=== PATIENT | male | born 1950 | race Caucasian/White ===

== ENCOUNTER → 2016-06-23 | Outpatient (CLI) | payer MEDICARE ==
[2016-04-14 21:15] VITALS: BP 156/66
[2016-06-23 10:08] LABS: CALCIUM 9.5 mg/dL (8.5-10.1); CREATININE 1.8 mg/dL (0.7-1.3); POTASSIUM 4.9 mmol/L (3.5-5.1)
[2016-06-23 10:10] LABS: GFR 37.7
== END | disposition home or self-care (01) ==
LOC: LAB 09:32
PROVIDERS: ATTEND Internal Medicine Nephrology
DX: E87.5 Hyperkalemia (principal)
CPT/HCPCS: 36415; 80048

== ENCOUNTER → 2016-07-30 | Outpatient (CLI) | payer MEDICARE ==
[2016-04-14 21:15] VITALS: BP 156/66
== END | disposition home or self-care (01) ==
LOC: LAB 11:27
PROVIDERS: ATTEND Internal Medicine Nephrology
DX: I12.9 Hypertensive chronic kidney disease with stage 1 through stage 4 chronic kidney disease, or unspecified chronic kidney disease (principal); N18.3 Chronic kidney disease, stage 3 (moderate); E87.5 Hyperkalemia; Z90.5 Acquired absence of kidney
CPT/HCPCS: 36415; 84132

== ENCOUNTER 2016-08-28 23:09 | Emergency (ER) | payer MEDICARE ==
[~2016-08-28] VITALS: Ht 165.1 cm; Wt 66.0 kg
--- NOTE | 2016-08-28 23:38 | PHYS DOC ---
Past History Past Medical History: Hypertension Past Surgical History: No Surgical History Alcohol Use: None Drug Use: None Adult General Chief Complaint Chief Complaint: LOWER EXT PAIN HPI HPI Patient is a 66 year old male who presents with complaint of bilateral lower extremity cramping. Patient was brought to the emergency department by EMS. 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 Patient states he started getting cramping of both of his legs this evening that became very severe. Patient was started on IV fluids by EMS prior to arrival. Patient states that he is still having cramping in his lower legs but states that it has improved since initiation of fluids. Patient denies any associated nausea, vomiting, chest pain, shortness of breath, or abdominal pain. Patient has had no fever or recent illness. 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 Patient currently has one kidney. Review of Systems Review of Systems Constitutional: Fatigue, denies fever or chills [] Eyes: Denies change in visual acuity, redness, or eye pain [] HENT: Denies nasal congestion or sore throat [] Respiratory: Denies cough or shortness of breath [] Cardiovascular: Denies chest pain or edema [] GI: Denies abdominal pain, nausea, vomiting, bloody stools or diarrhea [] : Denies dysuria or hematuria [] Musculoskeletal: Muscle cramps, denies back pain or joint pain [] Integument: Denies rash or skin lesions [] Neurologic: Denies headache, focal weakness or sensory changes [] Current Medications Current Medications Current Medications Medications (Trade) Dose Ordered Sig/[facility] Start Time Stop Time Status Last Admin Dose Admin Diazepam (Valium) 2 mg 1X ONCE 08/28/16 23:30 08/28/16 23:31 UNV Sodium Chloride 1,000 ml @ 1,000 mls/hr Q1H 08/28/16 23:27 08/29/16 00:26 UNV Allergies Allergies Allergies Coded Allergies Type Severity Reaction Last Updated Verified No Known Drug Allergies 04/14/16 No Physical Exam Physical Exam Constitutional: Alert, afebrile, appears in mild discomfort. [] HENT: Normocephalic, atraumatic, bilateral external ears normal, oropharynx moist, no oral exudates, nose normal. [] Eyes: PERRLA, EOMI, conjunctiva normal, no discharge. [] Neck: Normal range of motion, no tenderness, supple, no stridor. [] Cardiovascular:Heart rate regular rhythm, no murmur [] Lungs & Thorax: Bilateral breath sounds clear to auscultation [] Abdomen: Bowel sounds normal, soft, no tenderness, no masses, no pulsatile masses. [] Skin: Warm, dry, no erythema, no rash. [] Back: No tenderness, no CVA tenderness. [] Extremities: Mild bilateral calf tenderness to palpation with mild tetany, no cyanosis, ROM intact, no edema. [] Neurologic: Alert and oriented X 3, normal motor function, normal sensory function, no focal deficits noted. [] Current Patient Data Lab Results Laboratory Tests Test 08/28/16 23:55 White Blood Count 8.6 x10^3/uL Red Blood Count 4.21 x10^6/uL Hemoglobin 12.3 g/dL Hematocrit 36.4 % Mean Corpuscular Volume 87 fL Mean Corpuscular Hemoglobin 29 pg Mean Corpuscular Hemoglobin Concent 34 g/dL Red Cell Distribution Width 13.8 % Platelet Count 234 x10^3/uL Neutrophils (%) (Auto) 73 % Lymphocytes (%) (Auto) 17 % Monocytes (%) (Auto) 9 % Eosinophils (%) (Auto) 1 % Basophils (%) (Auto) 1 % Neutrophils # (Auto) 6.3 x10^3uL Lymphocytes # (Auto) 1.4 x10^3/uL Monocytes # (Auto) 0.7 x10^3/uL Eosinophils # (Auto) 0.1 x10^3/uL Basophils # (Auto) 0.1 x10^3/uL Sodium Level 138 mmol/L Potassium Level 4.4 mmol/L Chloride Level 105 mmol/L Carbon Dioxide Level 24 mmol/L Anion Gap 9 Blood Urea Nitrogen 38 mg/dL Creatinine 2.3 mg/dL Estimated GFR (Cockcroft-Gault) 28.4 BUN/Creatinine Ratio 17 Glucose Level 103 mg/dL Calcium Level 9.2 mg/dL Magnesium Level 2.2 mg/dL Total Bilirubin 0.2 mg/dL Aspartate Amino Transf (AST/SGOT) 21 U/L Alanine Aminotransferase (ALT/SGPT) 33 U/L Alkaline Phosphatase 92 U/L Creatine Kinase 175 U/L Total Protein 6.9 g/dL Albumin 3.6 g/dL Albumin/Globulin Ratio 1.1 Lipase 165 U/L Current Medications Medications (Trade) Dose Ordered Sig/Valente Route PRN Reason Start Time Stop Time Status Last Admin Dose Admin Sodium Chloride 1,000 ml @ 1,000 mls/hr Q1H IV 08/28/16 23:45 08/29/16 00:44 DC 08/29/16 00:02 Diazepam (Valium) 2 mg 1X ONCE IV 08/28/16 23:45 08/28/16 23:46 DC 08/29/16 00:02 EKG EKG Not performed [] Radiology/Procedures Radiology/Procedures Not performed [] Course & Med Decision Making Course & Med Decision Making Pertinent Labs and Imaging studies reviewed. (See chart for details) Patient received 500 mL of IV fluids by EMS prior to arrival. Patient was given an additional 1 L of IV fluids in the emergency department. Patient was found have mildly elevated creatinine and BUN the patient's CK levels appear to be normal at this time. The patient's symptoms appear to be due to heat exposure with resultant mild renal insufficiency. Patient states that he feels better at this time. Advised the patient to continue on oral hydration and rest with avoidance of any heat exposure or significant exertion. Advised patient follow- up with his primary doctor in 3 days for repeat blood testing to ensure improvement and BUN and creatinine. Advised return emergency department for any worsening symptoms. Patient voiced understanding and in agreement with treatment plan. Dragon Disclaimer Dragon Disclaimer This chart was dictated in whole or in part using Voice Recognition software in a busy, high-work load, and often noisy Emergency Department environment. It may contain unintended and wholly unrecognized errors or omissions. Departure Departure: Impression: Primary Impression: Dehydration Additional Impression: Heat cramps Disposition: HOME, SELF-CARE Condition: IMPROVED Referrals: ELIS VIZCAINO DO (PCP) Patient Instructions: Dehydration, Adult, Muscle Cramps Additional Instructions: Follow-up in 3 days with your primary doctor. You will need to have a basic metabolic panel blood test done by your primary doctor to recheck your BUN and creatinine as it was found to be elevated at today's visit. You're creatinine level was 2.3 today. This is believed to be due to dehydration and is expected to improve with hydration. Avoid any exertion or outside activity until your symptoms have completely resolved. Return to the emergency department for any worsening symptoms. Problem Qualifiers Additional Impression: Heat cramps Encounter type: initial encounter Qualified Codes: T67.2XXA - Heat cramp, initial encounter MAIN JULIO MD Aug 28, 2016 23:38
[2016-08-28] MEDS ORDERED: IV NORMAL SALINE 1,000ML 1,000 ML IV SCH (23:45)
[2016-08-29 00:22] LABS: BASO # 0.1 x10^3/uL (0.0-0.2); BASO % 1 % (0-3); EOS # 0.1 x10^3/uL (0.0-0.7); EOS % 1 % (0-3); HEMATOCRIT 36.4 % (39.0-53.0); HEMOGLOBIN 12.3 g/dL (13.0-17.5); LYMPH # 1.4 x10^3/uL (1.0-4.8); LYMPH % 17 % (24-48); MEAN CORPUSCULAR HEMOGLOBIN 29 pg (25-35); MEAN CORPUSCULAR HGB CONC 34 g/dL (31-37); MEAN CORPUSCULAR VOLUME 87 fL (79-100); MONO # 0.7 x10^3/uL (0.0-1.1); MONO % 9 % (0-9); NEUT # 6.3 x10^3uL (1.8-7.7); NEUT % 73 % (31-73); PLATELET COUNT 234 x10^3/uL (140-400); RED BLOOD COUNT 4.21 x10^6/uL (4.30-5.70); RED CELL DISTRIBUTION WIDTH 13.8 % (11.5-14.5); WHITE BLOOD COUNT 8.6 x10^3/uL (4.0-11.0)
[2016-08-29 00:31] LABS: ALBUMIN 3.6 g/dL (3.4-5.0); ALBUMIN/GLOBULIN RATIO 1.1 (1.0-1.7); CALCIUM 9.2 mg/dL (8.5-10.1); CREATININE 2.3 mg/dL (0.7-1.3); GFR 28.4; MAGNESIUM 2.2 mg/dL (1.8-2.4); POTASSIUM 4.4 mmol/L (3.5-5.1); TOTAL BILIRUBIN 0.2 mg/dL (0.2-1.0); TOTAL PROTEIN 6.9 g/dL (6.4-8.2)
[2016-08-29 01:21] LABS: BILIRUBIN,URINE NEG (NEG); CLARITY,URINE CLEAR; COLOR,URINE YELLOW; GLUCOSE,URINE NEG (NEG); NITRITE,URINE NEG (NEG); UROBILINOGEN,URINE 0.2 mg/dL (0.2 mg/dL)
[2016-08-29 01:22] LABS: BACTERIA,URINE FEW /HPF (0-FEW); HYALINE CASTS, URINE OCC /HPF; RBC,URINE 0 /HPF (0-2); SPERM,URINE PRESENT /HPF; SQUAMOUS EPITHELIAL CELL,UR FEW /LPF; WBC,URINE 0 /HPF (0-4)
[2016-08-29 01:30] VITALS: BP 139/90
== END 2016-08-29 01:36 | disposition home or self-care (01) ==
LOC: ER 23:09
DX: E86.0 Dehydration (principal); T67.2XXA Heat cramp, initial encounter; I10 Essential (primary) hypertension; X58.XXXA Exposure to other specified factors, initial encounter; Y93.89 Activity, other specified; Y99.8 Other external cause status; Y92.214 College as the place of occurrence of the external cause
CPT/HCPCS: 36415; 80053; 81001; 82550; 83690; 83735; 85027; 96361; 96374; 99284-25; J7030

== ENCOUNTER → 2016-09-09 | Outpatient (CLI) | payer MEDICARE ==
[2016-08-29 01:30] VITALS: BP 139/90
[2016-09-09 16:26] LABS: ALBUMIN 3.7 g/dL (3.4-5.0); CALCIUM 8.8 mg/dL (8.5-10.1); CREATININE 1.7 mg/dL (0.7-1.3); GFR 40.3; MAGNESIUM 2.2 mg/dL (1.8-2.4); PHOSPHORUS 3.7 mg/dL (2.6-4.7)
[2016-09-10 04:08] LABS: CREAT RD UR 94.7 mg/dL (Not Estab.); MICRO CREAT RATIO <12.7 mg/g creat (0.0-30.0); MICROALB RD UR <12.0 ug/mL (Not Estab.); TOTAL PROTEIN CREATININE RATIO 86 mg/g creat (0-200); UR PROTEIN RD 8.1 mg/dL (Not Estab.)
[2016-09-12 09:08] LABS: CALCIUM PTH 9.2 mg/dL (8.6-10.2); CREATININE PTH 1.59 mg/dL (0.76-1.27)
[2016-09-12 11:09] LABS: PTH INTACT 39 pg/mL (15-65)
== END | disposition home or self-care (01) ==
LOC: LAB 14:55
PROVIDERS: ATTEND Internal Medicine Nephrology
DX: I12.9 Hypertensive chronic kidney disease with stage 1 through stage 4 chronic kidney disease, or unspecified chronic kidney disease (principal); N18.3 Chronic kidney disease, stage 3 (moderate); E87.5 Hyperkalemia; Z90.5 Acquired absence of kidney
CPT/HCPCS: 36415; 80069; 82043; 82570; 83735; 83970; 84156; 85014; 85018

== ENCOUNTER → 2016-10-06 | Outpatient (CLI) | payer MEDICARE | END | disposition home or self-care (01) | LOC: LAB 14:39 | PROVIDERS: ATTEND Internal Medicine Nephrology | DX: E87.5 Hyperkalemia (principal) | CPT/HCPCS: 36415; 84132 ==

== ENCOUNTER → 2016-11-23 | Outpatient (CLI) | payer MEDICARE ==
[2016-11-23 09:08] LABS: HEMATOCRIT 37.6 % (39.0-53.0)
[2016-11-23 09:15] LABS: ALBUMIN 3.5 g/dL (3.4-5.0); CALCIUM 8.7 mg/dL (8.5-10.1); CREATININE 1.7 mg/dL (0.7-1.3); GFR 40.3; PHOSPHORUS 3.4 mg/dL (2.6-4.7); POTASSIUM 4.4 mmol/L (3.5-5.1)
[2016-11-23 23:09] LABS: MICRO CREAT RATIO <8.7 mg/g creat (0.0-30.0); MICROALB RD UR <12.0 ug/mL (Not Estab.); PROTEIN RANDOM URINE 7.8 mg/dL (Not Estab.)
[2016-11-24 00:07] LABS: PTH INTACT 29 pg/mL (15-65)
== END | disposition home or self-care (01) ==
LOC: LAB 08:17
PROVIDERS: ATTEND Internal Medicine Nephrology
DX: I12.9 Hypertensive chronic kidney disease with stage 1 through stage 4 chronic kidney disease, or unspecified chronic kidney disease (principal); N18.3 Chronic kidney disease, stage 3 (moderate); E87.5 Hyperkalemia; Z90.5 Acquired absence of kidney
CPT/HCPCS: 36415; 80069; 82043; 82570; 83735; 83970; 84156; 85014; 85018

== ENCOUNTER 2017-03-12 19:17 | Emergency (ER) | payer MEDICARE ==
[~2017-03-12] VITALS: Ht 170.2 cm; Wt 61.7 kg
[2017-03-12] MEDS ORDERED: IV NORMAL SALINE 1,000ML 1,000 ML IV ONE (19:30)
--- NOTE | 2017-03-12 19:34 | PHYS DOC ---
Past History Past Medical History: Hypertension, Other Past Surgical History: Other Alcohol Use: None Drug Use: None Adult General Chief Complaint Chief Complaint: ABDOMINAL PAIN HPI HPI Patient is a 66 year old M who presents with right groin pain off and on for the past week. Patient states his truck has been broken down in today's a first aid they were able to get up and running therefore came to the emergency room for further evaluation. Currently in emergency room patient has no pain as is in no acute distress. Patient states he does not know what brings on or relieves the pain and numbness right growing. Patient denies any dysuria. Patient denies any cost patient or diarrhea. 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 Patient denies any fevers. Patient denies any nausea/vomiting. Patient has no other complaints. Review of Systems Review of Systems GEN: Denies fevers, chills, sweats HEENT: Denies blurred vision, sore throat CV: Denies chest pain RESP: Denies shortness of air, cough GI: Denies n/v/d NEURO: Denies confusion, dizziness MSK: Denies weakness, joint pain/swelling All other systems were reviewed and found to be within normal limits, except as documented in this note. Allergies Allergies Allergies Coded Allergies Type Severity Reaction Last Updated Verified No Known Drug Allergies 04/14/16 No Physical Exam Physical Exam GEN.: No apparent distress. Alert and oriented. HEENT: Head is normocephalic, atraumatic NECK: Supple. LUNGS: CTAB. HEART: RRR, S1, S2 present. Peripheral pulses intact ABDOMEN: Soft, nontender. Positive bowel sounds. : Circumcised, no tenderness palpation and no masses felt in the right or left testicle, normal lie for both testicles no groin masses felt EXTREMITIES: Without any cyanosis. NEUROLOGIC: Normal speech, normal tone PSYCHIATRIC: Normal affect, normal mood. SKIN: No ulcerations Current Patient Data Vital Signs Vital Signs Date Time Temp Pulse Resp B/P (MAP) Pulse Ox O2 Delivery O2 Flow Rate FiO2 03/12/17 19:25 97.6 66 18 98 Room Air EKG EKG [] Radiology/Procedures Radiology/Procedures CT scan abdomen and pelvis without contrast IMPRESSION: 1. Bilateral inguinal hernias as described above. 2. The appendix is negative. 3. Sigmoid colon diverticulosis. 4. Bladder diverticuli.[] Course & Med Decision Making Course & Med Decision Making Pertinent Labs and Imaging studies reviewed. (See chart for details) ED course: Patient was seen and examined emergency room abdominal lab work was ordered along with a CT scan abdomen pelvis with contrast Updated patient on lab results and specific the elevated creatinine 1.[address] findings of bilateral inguinal hernias. On reexamination patient has no signs of incarceration or strangulation of the hernias and since the patient is asymptomatic at this time he is stable for discharge and recommended follow-up with his PCP to be referred on to a general surgeon. MDM: After reviewing the chart, CC/HPI/PMH, physical exam, [lab results], [ radiological results], I do not believe the patient has intra-abdominal emergency warranting further workup and/or admission at this time. Patient was made aware of the abnormal lab work and the abnormal findings on CT scan. On reexamination patient is asymptomatic and wanted to go home. I believe patient stable for discharge. Recommended short-term follow-up as PCP. Additional verbal discharge instructions were provided to the patient and that if symptoms get worse or any new symptoms arise that are worrisome to the patient he is to return to the emergency room immediately [] Dragon Disclaimer Dragon Disclaimer This electronic medical record was generated, in whole or in part, using a voice recognition dictation system. Departure Departure: Impression: Primary Impression: Right groin pain Additional Impressions: Inguinal hernia bilateral, non-recurrent Renal insufficiency Disposition: HOME, SELF-CARE Condition: IMPROVED Referrals: ELIS VZICAINO DO (PCP) Patient Instructions: Abdominal Pain (Nonspecific), Chronic Renal Insufficiency , Inguinal Hernia, Adult Additional Instructions: Please follow-up with your family physician in the next one to 2 days for further evaluation and management and recheck of your creatinine and for further treatment of your inguinal hernia Problem Qualifiers RAMONA LICEA DO Mar 12, 2017 19:34
[2017-03-12 19:52] LABS: BASO # 0.1 x10^3/uL (0.0-0.2); BASO % 1 % (0-3); EOS # 0.2 x10^3/uL (0.0-0.7); EOS % 3 % (0-3); HEMOGLOBIN 13.5 g/dL (13.0-17.5); LYMPH % 37 % (24-48); MEAN CORPUSCULAR HEMOGLOBIN 30 pg (25-35); MEAN CORPUSCULAR HGB CONC 35 g/dL (31-37); MEAN CORPUSCULAR VOLUME 87 fL (79-100); MONO # 0.5 x10^3/uL (0.0-1.1); MONO % 9 % (0-9); NEUT # 2.7 x10^3uL (1.8-7.7); NEUT % 50 % (31-73); PLATELET COUNT 232 x10^3/uL (140-400); RED BLOOD COUNT 4.47 x10^6/uL (4.30-5.70); RED CELL DISTRIBUTION WIDTH 12.8 % (11.5-14.5); WHITE BLOOD COUNT 5.4 x10^3/uL (4.0-11.0)
[2017-03-12 20:05] LABS: ALBUMIN 3.6 g/dL (3.4-5.0); ALBUMIN/GLOBULIN RATIO 1.1 (1.0-1.7); CALCIUM 9.3 mg/dL (8.5-10.1); CREATININE 1.8 mg/dL (0.7-1.3); GFR 37.7; POTASSIUM 3.7 mmol/L (3.5-5.1); TOTAL BILIRUBIN 0.2 mg/dL (0.2-1.0)
[2017-03-12 20:48] VITALS: BP 165/92
--- NOTE | 2017-03-12 21:18 | RAD ---
CT abdomen and pelvis without contrast TECHNIQUE: Helical CT imaging of the abdomen and pelvis was acquired without contrast. COMPARISON: CT abdomen and pelvis April 14, 2016. HISTORY: Right lower quadrant abdominal pain. History of left nephrectomy for neoplasm. Abdomen findings: Left nephrectomy. Left adrenal absent or atrophic. Right kidney, right adrenal, pancreas, spleen, liver and gallbladder are unremarkable. Extensive sigmoid colon diverticulosis without inflammatory change evident. The appendix is negative. No bowel obstruction. Aortoiliac artery calcified plaque and mild tortuosity. No abdominal fluid. Lower lumbar spine disc disease. Pelvis findings: 2 cm hypodensity diverticulum of the right posterolateral bladder wall and a smaller 1 cm left Hutch diverticulum. There is a shallow 2 cm left inguinal hernia containing a segment of small bowel without obstruction or inflammation. There is a slightly larger 4 cm right inguinal fatty hernia. Prostate, rectum and bones are unremarkable. No pelvic fluid. IMPRESSION: 1. Bilateral inguinal hernias as described above. 2. The appendix is negative. 3. Sigmoid colon diverticulosis. 4. Bladder diverticuli. Exposure: One or more of the following individualized dose reduction techniques were utilized for this examination: 1. Automated exposure control 2. Adjustment of the mA and/or kV according to patient size 3. Use of iterative reconstruction technique Electronically signed by: Moises Valles MD (03/12/2017 9:15 PM) [facility]
[2017-03-12 21:31] LABS: BACTERIA,URINE 0 /HPF (0-FEW); BILIRUBIN,URINE NEG (NEG); CLARITY,URINE CLEAR; COLOR,URINE STRAW; GLUCOSE,URINE NEG (NEG); NITRITE,URINE NEG (NEG); RBC,URINE 0 /HPF (0-2); SQUAMOUS EPITHELIAL CELL,UR OCC /LPF; UROBILINOGEN,URINE 0.2 mg/dL (0.2 mg/dL); WBC,URINE OCC /HPF (0-4)
== END 2017-03-12 22:07 | disposition home or self-care (01) ==
LOC: ER 19:17
DX: K40.20 Bilateral inguinal hernia, without obstruction or gangrene, not specified as recurrent (principal); N28.9 Disorder of kidney and ureter, unspecified; I10 Essential (primary) hypertension
CPT/HCPCS: 36415; 74176; 80053; 81001; 83690; 85025; 96360; 99285-25; J7030

== ENCOUNTER → 2017-03-26 | Outpatient (CLI) | payer MEDICARE ==
[2017-03-12 20:48] VITALS: BP 165/92
[2017-03-26 14:37] LABS: CREATININE 1.6 mg/dL (0.7-1.3); GFR 43.2; POTASSIUM 4.1 mmol/L (3.5-5.1)
== END | disposition home or self-care (01) ==
LOC: LAB 13:50
PROVIDERS: ATTEND Surgery
DX: Z01.812 Encounter for preprocedural laboratory examination (principal)
CPT/HCPCS: 36415; 80048; 83880

== ENCOUNTER 2017-12-28 17:55 | Emergency (ER) | payer MEDICARE ==
[~2017-12-28] VITALS: Ht 165.1 cm; Wt 65.8 kg
--- NOTE | 2017-12-28 20:13 | PHYS DOC ---
Past History Past Medical History: Hypertension Past Surgical History: Other Smoking: Non-smoker Alcohol Use: None Drug Use: None Adult General Chief Complaint Chief Complaint: FOREIGNBODY EAR HPI HPI Patient is a previously healthy 67-year-old male presenting to the ED due to cotton in the ear. Patient reports that he was cleaning his ear with a Q-tip but the cotton got left behind in his right ear. Patient denies any pain or discomfort in the right ear. States that he is missing a part of his tympanic membrane in the right ear and that he cannot hear out of that ear. Patient states that he is comfortable and not in any distress. Review of Systems Review of Systems Constitutional: Denies fever or chills [] Eyes: Denies change in visual acuity, redness, or eye pain [] HENT: Denies nasal congestion or sore throat [] Respiratory: Denies cough or shortness of breath [] Cardiovascular: Denies chest pain GI: Denies abdominal pain, nausea, vomiting, bloody stools or diarrhea [] : Denies dysuria or hematuria [] Musculoskeletal: Denies back pain or joint pain [] Integument: Denies rash or skin lesions [] Neurologic: Denies headache, focal weakness or sensory changes [] Complete systems were reviewed and found to be within normal limits, except as documented in this note. Allergies Allergies Allergies Coded Allergies Type Severity Reaction Last Updated Verified No Known Drug Allergies 04/14/16 No Physical Exam Physical Exam Constitutional: Well developed, well nourished, no acute distress, non-toxic appearance. [] HENT: Normocephalic, atraumatic, abnormal right tympanic membrane- partial tear which appears chronic, no cotton or other foreign body visible in the right ear. Eyes: Conjunctiva normal, no discharge. [] Neck: Normal range of motion, supple Skin: Warm, dry, no erythema, no rash. [] Extremities: No tenderness, ROM intact Neurologic: Alert and oriented X 3, normal motor function, normal sensory function, no focal deficits noted. [] Psychologic: Affect normal, judgement normal, mood normal. [] Current Patient Data Vital Signs Vital Signs Date Time Temp Pulse Resp B/P (MAP) Pulse Ox O2 Delivery O2 Flow Rate FiO2 12/28/17 19:02 98.2 61 20 99 Room Air EKG EKG [] Radiology/Procedures Radiology/Procedures [] Course & Med Decision Making Course & Med Decision Making 67-year-old male presenting to the ED due to concern for retained cotton foreign body in right ear. Patient did not endorse any discomfort or pain in the right ear. The cotton was unable to be visualized using the otoscope. The patient was reminded to not place any more foreign bodies into his right ear due to his abnormal tympanic membrane and concern for further injury. Patient stable for discharge with outpatient follow-up with PCP/ENT. Discussed findings and plan with patient, who acknowledges understanding and agreement. Dragon Disclaimer Dragon Disclaimer This electronic medical record was generated, in whole or in part, using a voice recognition dictation system. Departure Departure: Impression: Primary Impression: Feared condition not demonstrated Additional Impression: Abnormal tympanic membrane Disposition: 01 HOME, SELF-CARE Condition: STABLE Referrals: ELIS VIZCAINO DO (PCP) Patient Instructions: Ear Foreign Body, [id number] Additional Instructions: Foreign body not demonstrated on today's examination. Please refrain from placing items including Qtips into ears. Problem Qualifiers Additional Impression: Abnormal tympanic membrane Laterality: right Qualified Codes: H73.91 - Unspecified disorder of tympanic membrane, right ear RJ PEREZ DO Dec 28, 2017 20:13
[2017-12-28 20:15] VITALS: BP 146/78
== END 2017-12-28 20:18 | disposition home or self-care (01) ==
LOC: ER 17:58
DX: Z71.1 Person with feared health complaint in whom no diagnosis is made (principal); H73.891 Other specified disorders of tympanic membrane, right ear; I10 Essential (primary) hypertension
CPT/HCPCS: 99281

== ENCOUNTER → 2018-11-08 | Outpatient (CLI) | payer OTHER ==
[2018-11-08 10:32] LABS: HEMATOCRIT 40.8 % (39.0-53.0); HEMOGLOBIN 13.7 g/dL (13.0-17.5)
[2018-11-08 10:39] LABS: ALBUMIN 3.7 g/dL (3.4-5.0); CREATININE 1.6 mg/dL (0.7-1.3); GFR 42.9; MAGNESIUM 2.1 mg/dL (1.8-2.4); PHOSPHORUS 3.5 mg/dL (2.6-4.7); POTASSIUM 4.7 mmol/L (3.5-5.1)
[2018-11-08 14:11] LABS: CREATININE,RANDOM URINE 119.2 mg/dL (Not Establ.)
[2018-11-08 22:10] LABS: MICRO CREAT RATIO <2.7 mg/g creat (0.0-30.0); MICROALB RD UR <3.0 ug/mL (Not Estab.)
[2018-11-09 01:08] LABS: CALCIUM PTH 9.3 mg/dL (8.6-10.2); CREATININE PTH 1.44 mg/dL (0.76-1.27); PTH INTACT 35 pg/mL (15-65)
== END | disposition home or self-care (01) ==
LOC: MERGE 09:43 → LAB 09:43
PROVIDERS: ATTEND Nurse Practitioner Adult Health
DX: I12.9 Hypertensive chronic kidney disease with stage 1 through stage 4 chronic kidney disease, or unspecified chronic kidney disease (principal); N18.3 Chronic kidney disease, stage 3 (moderate); Z90.5 Acquired absence of kidney; Z68.24 Body mass index [BMI] 24.0-24.9, adult
CPT/HCPCS: 36415; 80069; 82043; 82570; 83735; 83970; 84156; 85014; 85018

== ENCOUNTER 2019-04-13 04:26 | Emergency (ER) | payer MEDICARE, OTHER ==
[~2019-04-13] VITALS: Ht 165.1 cm; Wt 66.0 kg
[2019-04-13] MEDS ORDERED: IV NORMAL SALINE 1,000ML 1,000 ML IV SCH (05:00)
[2019-04-13 05:04] LABS: BASO % 1 % (0-3); EOS % 1 % (0-3); HEMATOCRIT 38.4 % (39.0-53.0); HEMOGLOBIN 12.8 g/dL (13.0-17.5); LYMPH # 1.2 x10^3/uL (1.0-4.8); LYMPH % 24 % (24-48); MEAN CORPUSCULAR HEMOGLOBIN 30 pg (25-35); MEAN CORPUSCULAR HGB CONC 33 g/dL (31-37); MEAN CORPUSCULAR VOLUME 89 fL (79-100); MONO # 0.6 x10^3/uL (0.0-1.1); MONO % 13 % (0-9); NEUT # 3.1 x10^3uL (1.8-7.7); NEUT % 62 % (31-73); PLATELET COUNT 177 x10^3/uL (140-400); RED BLOOD COUNT 4.33 x10^6/uL (4.30-5.70); RED CELL DISTRIBUTION WIDTH 13.3 % (11.5-14.5); WHITE BLOOD COUNT 5.1 x10^3/uL (4.0-11.0)
[2019-04-13 05:10] LABS: CALCIUM 8.1 mg/dL (8.5-10.1); CREATININE 1.8 mg/dL (0.7-1.3); GFR 37.5; POTASSIUM 3.9 mmol/L (3.5-5.1)
[2019-04-13 05:16] LABS: ALBUMIN 3.3 g/dL (3.4-5.0); TOTAL BILIRUBIN 0.3 mg/dL (0.2-1.0); TOTAL PROTEIN 6.6 g/dL (6.4-8.2)
--- NOTE | 2019-04-13 05:30 | PHYS DOC ---
Past History Past Medical History: DVT, Hypertension Past Surgical History: Other Additional Past Surgical Histo: TUMOR REMOVAL ON LEFT KIDNEY, HERNIA X2 Smoking: Non-smoker Alcohol Use: None Drug Use: None Adult General Chief Complaint Chief Complaint: LOWER EXT PAIN HPI HPI Patient is a 68-year-old male who presents with complaint of left lower leg pain that started about 20-30 minutes prior to his arrival. Patient states that he started having a cramp in his leg and called 911. Upon arrival, patient states that the leg cramp is gone. He does indicate that he is getting history of DVT in the past about a year ago. He denies being on any blood thinners. Currently he denies any leg pain, chest pain, shortness of breath or other symptoms.[] Review of Systems Review of Systems Constitutional: Denies fever or chills [] Respiratory: Denies cough or shortness of breath [] Cardiovascular: No additional information not addressed in HPI [] GI: Denies abdominal pain, nausea, vomiting or diarrhea [] Musculoskeletal: Positive left leg pain [] Integument: Denies rash or skin lesions [] All other systems were reviewed and found to be within normal limits, except as documented in this note. Current Medications Current Medications Current Medications Medications (Trade) Dose Ordered Sig/Valente Start Time Stop Time Status Last Admin Dose Admin Sodium Chloride 1,000 ml @ 1,000 mls/hr Q1H 04/13/19 05:00 04/13/19 05:59 04/13/19 04:50 1,000 MLS/HR Allergies Allergies Allergies Coded Allergies Type Severity Reaction Last Updated Verified No Known Drug Allergies 04/14/16 No Physical Exam Physical Exam Constitutional: Well developed, well nourished, no acute distress, non-toxic appearance. [] HENT: Normocephalic, atraumatic, bilateral external ears normal, oropharynx moist, no oral exudates, nose normal. [] Eyes: PERRLA, EOMI, conjunctiva normal, no discharge. [] Neck: Normal range of motion, no tenderness, supple, no stridor. [] Cardiovascular: Regular rate and rhythm[] Lungs & Thorax: Bilateral breath sounds clear to auscultation [] Abdomen: Bowel sounds normal, soft, no tenderness. [] Skin: Warm, dry, no erythema, no rash. [] Extremities: No tenderness, no cyanosis, no clubbing, ROM intact, no edema. [] Neurologic: Alert and oriented X 3, no focal deficits noted. [] Current Patient Data Vital Signs Vital Signs Date Time Temp Pulse Resp B/P (MAP) Pulse Ox O2 Delivery O2 Flow Rate FiO2 04/13/19 04:34 97.8 59 16 137/54 (81) 96 Room Air Lab Results Laboratory Tests Test 04/13/19 04:50 White Blood Count 5.1 x10^3/uL (4.0-11.0) Red Blood Count 4.33 x10^6/uL (4.30-5.70) Hemoglobin 12.8 g/dL (13.0-17.5) L Hematocrit 38.4 % (39.0-53.0) L Mean Corpuscular Volume 89 fL (79-100) Mean Corpuscular Hemoglobin 30 pg (25-35) Mean Corpuscular Hemoglobin Concent 33 g/dL (31-37) Red Cell Distribution Width 13.3 % (11.5-14.5) Platelet Count 177 x10^3/uL (140-400) Neutrophils (%) (Auto) 62 % (31-73) Lymphocytes (%) (Auto) 24 % (24-48) Monocytes (%) (Auto) 13 % (0-9) H Eosinophils (%) (Auto) 1 % (0-3) Basophils (%) (Auto) 1 % (0-3) Neutrophils # (Auto) 3.1 x10^3uL (1.8-7.7) Lymphocytes # (Auto) 1.2 x10^3/uL (1.0-4.8) Monocytes # (Auto) 0.6 x10^3/uL (0.0-1.1) Eosinophils # (Auto) 0.0 x10^3/uL (0.0-0.7) Basophils # (Auto) 0.0 x10^3/uL (0.0-0.2) D-Dimer (Niharika) 0.52 mg/L (0.00-0.50) H Sodium Level 135 mmol/L (136-145) L Potassium Level 3.9 mmol/L (3.5-5.1) Chloride Level 99 mmol/L (98-107) Carbon Dioxide Level 26 mmol/L (21-32) Anion Gap 10 (6-14) Blood Urea Nitrogen 34 mg/dL (8-26) H Creatinine 1.8 mg/dL (0.7-1.3) H Estimated GFR (Cockcroft-Gault) 37.5 BUN/Creatinine Ratio 19 (6-20) Glucose Level 105 mg/dL (70-99) H Calcium Level 8.1 mg/dL (8.5-10.1) L Total Bilirubin 0.3 mg/dL (0.2-1.0) Aspartate Amino Transferase (AST) 26 U/L (15-37) Alanine Aminotransferase (ALT) 27 U/L (16-63) Alkaline Phosphatase 77 U/L (46-116) Total Protein 6.6 g/dL (6.4-8.2) Albumin 3.3 g/dL (3.4-5.0) L Albumin/Globulin Ratio 1.0 (1.0-1.7) EKG EKG [] Radiology/Procedures Radiology/Procedures [] Course & Med Decision Making Course & Med Decision Making Pertinent Labs and Imaging studies reviewed. (See chart for details) [] Dragon Disclaimer Dragon Disclaimer This electronic medical record was generated, in whole or in part, using a voice recognition dictation system. Departure Departure: Impression: Primary Impression: Leg pain, left Additional Impression: Dehydration Disposition: 01 HOME, SELF-CARE Condition: STABLE Referrals: ABDIRAHMAN CROOKS (PCP) Patient Instructions: Dehydration, Adult, Leg Cramps Problem Qualifiers SOHAM ALAS Jr. DO Apr 13, 2019 05:30
[2019-04-13 05:32] VITALS: BP 138/116
== END 2019-04-13 05:38 | disposition home or self-care (01) ==
LOC: ER 04:26
DX: M79.662 Pain in left lower leg (principal); E86.0 Dehydration; I10 Essential (primary) hypertension; Z86.718 Personal history of other venous thrombosis and embolism
CPT/HCPCS: 36415; 80053; 85025; 85379; 96360; 99284-25; J7030

== ENCOUNTER → 2019-07-10 | Outpatient (CLI) | payer MEDICARE ==
[2019-07-10 09:56] LABS: HEMATOCRIT 42.3 % (39.0-53.0)
[2019-07-10 10:03] LABS: ALBUMIN 3.8 g/dL (3.4-5.0); CALCIUM 9.2 mg/dL (8.5-10.1); CREATININE 1.7 mg/dL (0.7-1.3); GFR 39.9; PHOSPHORUS 3.4 mg/dL (2.6-4.7); POTASSIUM 4.2 mmol/L (3.5-5.1)
[2019-07-11 01:07] LABS: CALCIUM PTH 9.8 mg/dL (8.6-10.2); CREATININE PTH 1.67 mg/dL (0.76-1.27); PTH INTACT 25 pg/mL (15-65)
== END | disposition home or self-care (01) ==
LOC: LAB 09:06
PROVIDERS: ATTEND Nurse Practitioner Adult Health
DX: I12.9 Hypertensive chronic kidney disease with stage 1 through stage 4 chronic kidney disease, or unspecified chronic kidney disease (principal); N18.3 Chronic kidney disease, stage 3 (moderate); Z90.5 Acquired absence of kidney; Z98.890 Other specified postprocedural states
CPT/HCPCS: 36415; 80069; 82728; 83540; 83550; 83970; 85014; 85018

== ENCOUNTER 2019-10-27 07:26 | Emergency (ER) | payer MEDICARE ==
[~2019-10-27] VITALS: Ht 165.1 cm; Wt 67.2 kg
[2019-10-27 08:04] LABS: BASO # 0.1 x10^3/uL (0.0-0.2); BASO % 2 % (0-3); EOS # 0.1 x10^3/uL (0.0-0.7); EOS % 3 % (0-3); HEMATOCRIT 41.7 % (39.0-53.0); HEMOGLOBIN 14.3 g/dL (13.0-17.5); LYMPH # 1.6 x10^3/uL (1.0-4.8); LYMPH % 34 % (24-48); MEAN CORPUSCULAR HEMOGLOBIN 31 pg (25-35); MEAN CORPUSCULAR HGB CONC 34 g/dL (31-37); MEAN CORPUSCULAR VOLUME 91 fL (79-100); MONO # 0.4 x10^3/uL (0.0-1.1); MONO % 9 % (0-9); NEUT # 2.4 x10^3uL (1.8-7.7); NEUT % 53 % (31-73); PLATELET COUNT 242 x10^3/uL (140-400); RED BLOOD COUNT 4.58 x10^6/uL (4.30-5.70); RED CELL DISTRIBUTION WIDTH 13.2 % (11.5-14.5); WHITE BLOOD COUNT 4.6 x10^3/uL (4.0-11.0)
--- NOTE | 2019-10-27 08:05 | PHYS DOC ---
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 Pain worsened with any foot dorsiflexion or plantarflexion. Reports he has had a DVT study in the past, no history of blood clots. No recent antibiotics of fluoroquinolone use. No pain of the left hip, left knee or left ankle joint. Review of Systems: Review of Systems: Constitutional: Denies fever or chills Eyes: Denies change in visual acuity HENT: Denies nasal congestion or sore throat Respiratory: Denies cough or shortness of breath Cardiovascular: Denies chest pain or hemoptysis GI: Denies abdominal pain, nausea, vomiting, : Denies dysuria Musculoskeletal: Denies back pain or joint pain Integument: Denies rash Neurologic: Denies headache, focal weakness or sensory changes Endocrine: Denies polyuria or polydipsia Psychiatric: Denies depression or anxiety Allergies: Allergies: Allergies Coded Allergies Type Severity Reaction Last Updated Verified No Known Drug Allergies 10/27/19 No Physical Exam: PE: Constitutional: Well developed, well nourished, no acute distress, non-toxic appearance. [] HENT: Normocephalic, atraumatic, bilateral external ears normal, oropharynx moist, no oral exudates, nose normal. [] Eyes: EOMI, conjunctiva normal, no discharge. [] Neck: Normal range of motion, no tenderness, supple, no stridor. [] Cardiovascular:Heart rate regular rhythm, no murmur [] Lungs & Thorax: Bilateral breath sounds clear to auscultation [] Abdomen: Bowel sounds normal, soft, no tenderness, no masses, no pulsatile masses. [] Skin: Warm, dry, no erythema, no rash. [] Back: No tenderness, no CVA tenderness. [] Extremities: No tenderness, no cyanosis, no clubbing, ROM intact, no edema, equal calves, ttp over proximal right posterior leg, minimal/no plantar flexion of lle when compated to rle, equal PT/DP pulses, no pain at knee/ankle joint Neurologic: Alert and oriented X 3, normal motor function, normal sensory function, no focal deficits noted. [] Psychologic: Affect normal, judgement normal, mood normal. [] EKG: EKG: [] Radiology/Procedures: Radiology/Procedures: []IMAGING REPORT Signed PATIENT: EDMOND WHITMAN ACCOUNT: [id number] : 1950 LOCATION: ER AGE: 69 SEX: M EXAM STATUS: REG ER ORD. PHYSICIAN: SARTHAK MOSQUEDA DO REASON: posterior calve pain when flexing foot or weightbearing PROCEDURE: ANKLE LEFT 3V Left ankle 3 views. HISTORY: Posterior calf pain 3 views were taken of the left ankle. There is not evidence of a fracture or acute osseous abnormality. IMPRESSION: 1. No fracture or acute osseous abnormality noted in the left ankle. Electronically signed by: Riaz Heart MD (10/27/2019 8:30 AM) [id number] DICTATED AND SIGNED BY: RIAZ HEART MD DATE: 10/27/19829 CC: ABDIRAHMAN CROOKS; SARTHAK MOSQUEDA DO ~ IMAGING REPORT Signed PATIENT: EDMOND WHITMAN ACCOUNT: [id number] : 1950 LOCATION: ER AGE: 69 SEX: M EXAM STATUS: REG ER ORD. PHYSICIAN: SARTHAK MOSQUEDA DO REASON: LLE PAIN AND SWELLING S/P TRAUMA PROCEDURE: VENOUS LOWER EXTREMITY LEFT Examination: Left Lower Extremity Venous Doppler Ultrasound History: Left lower extremity pain, swelling Comparison: None Procedure: Leiva scale, color flow 2D and spectal waveform analysis images are obtained with and without compression in the area of the common femoral vein, superficial femoral vein - femoral vein junction, main femoral vein (superficial femoral vein) and popliteal vein. Veins of the proximal calf are also imaged. Findings: There is normal duplex flow, color flow and compressibility of all visualized vein segments. No evidence of deep venous thrombus is present. Patient could not tolerate compression in the calf region. Impression: No evidence of DVT in the visualized left lower extremity venous system. Electronically signed by: Ruben Saavedra MD (10/27/2019 8:28 AM) [id number] DICTATED AND SIGNED BY: RUBEN SAAVEDRA MD DATE: 10/27/19827 CC: ABDIRAHMAN CROOKS; SARTHAK MOSQUEDA DO ~ Patient informed of findings. Posterior short left leg splint applied by RN. The splint is checked by myself, with appropriate stabilization of the injury. Distal capillary refill normal and distal neurologic function intact Course & Med Decision Making: Course & Med Decision Making Pertinent Labs and Imaging studies reviewed. (See chart for details) Highly concerned for Achilles tendon rupture of left lower extremity. Ultrasound with no DVT of the left lower extremity. X-ray with posterior ankle swelling-patient has no pain over the Achilles tendon which is highly suspicious for complete tear. Patient was placed in a short leg posterior splint and given crutches. Patient reports he has a walker at home. Labs concerning for kidney failure -Cr 1.7 today (Cr 1.8 in 05/2016). Educated patient that he would need urgent follow-up with orthopedic surgery, may need an MRI-address/phone number of Dr. Valencia given. Encouraged urgent outpatient follow-up with PMD and orthopedic surgery. Life-threatening processes were considered but are low suspicion at this time, given history and physical exam. All patient's ques tions were answered and pt was stable at time of discharge. Differential includes fracture, dislocation, laceration, osteomyelitis, compartment syndrome, neurovascular injury or deficit, infection (abscess, cellulitis, septic arthritis), tendon or ligament injury. I spoken with the patient and her caregivers. I explained the patient's condition, diagnoses and treatment plan based on the information available to me at this time. I have answered the patient and her caregiver's questions and addressed any concerns. The patient and her caregivers have a good understanding of patient's diagnosis, condition and treatment plan as can be expected at this point. Vital signs have been stable. Patient's condition is stable and appropriate for discharge from the emergency department. Patient will pursue further outpatient evaluation with primary care physician or other designated or consulting physician as outlined in the discharge instructions. The patient and/or caregivers are agreeable to this plan of care and follow-up instructions have been explained in detail. The patient and/or caregivers have received these instructions in written form and have expressed an understanding of the discharge instructions. The patient and/or caregivers are aware that any significant change of condition or worsening of symptoms should prompt immediate return to this or the closest emergency department or call to 911. Janee Disclaimer: Janee Disclaimer: This electronic medical record was generated, in whole or in part, using a voice recognition dictation system. Departure Departure: Impression: Primary Impression: Left leg pain Additional Impressions: Achilles tendon injury CKD (chronic kidney disease) Disposition: 01 HOME/RESIDENCE PRIOR TO ADM Condition: STABLE Referrals: ABDIRAHMAN CROOKS (PCP) Patient Instructions: Achilles Tendon Rupture (Complete), Achilles Tendon Rupture with Phase I Rehab-SportsMed, Kidney Failure, Rodriguez Splints, [id number] Additional Instructions: Galdino Valencia MD-orthopedic surgery [address] [facility] [address], [address] [address] Justification of Admission: Justification of Admission: Justification of Admission Dx: N/A SARTHAK MOSQUEDA DO Oct 27, 2019 08:05
[2019-10-27 08:13] LABS: CREATININE 1.7 mg/dL (0.7-1.3); GFR 39.9; POTASSIUM 4.4 mmol/L (3.5-5.1)
[2019-10-27 08:30] VITALS: BP 168/86
--- NOTE | 2019-10-27 08:31 | RAD ---
Examination: Left Lower Extremity Venous Doppler Ultrasound History: Left lower extremity pain, swelling Comparison: None Procedure: Leiva scale, color flow 2D and spectal waveform analysis images are obtained with and without compression in the area of the common femoral vein, superficial femoral vein - femoral vein junction, main femoral vein (superficial femoral vein) and popliteal vein. Veins of the proximal calf are also imaged. Findings: There is normal duplex flow, color flow and compressibility of all visualized vein segments. No evidence of deep venous thrombus is present. Patient could not tolerate compression in the calf region. Impression: No evidence of DVT in the visualized left lower extremity venous system. Electronically signed by: Ruben Saavedra MD (10/27/2019 8:28 AM) [id number]
--- NOTE | 2019-10-27 08:34 | RAD ---
Left ankle 3 views. HISTORY: Posterior calf pain 3 views were taken of the left ankle. There is not evidence of a fracture or acute osseous abnormality. IMPRESSION: 1. No fracture or acute osseous abnormality noted in the left ankle. Electronically signed by: Riaz Heart MD (10/27/2019 8:30 AM) [id number]
== END 2019-10-27 08:50 | disposition home or self-care (01) ==
LOC: ER 07:26
DX: S86.001A Unspecified injury of right Achilles tendon, initial encounter (principal); I10 Essential (primary) hypertension; I12.9 Hypertensive chronic kidney disease with stage 1 through stage 4 chronic kidney disease, or unspecified chronic kidney disease; N18.9 Chronic kidney disease, unspecified; Z86.718 Personal history of other venous thrombosis and embolism; X50.9XXA Other and unspecified overexertion or strenuous movements or postures, initial encounter; Y93.02 Activity, running; Y92.89 Other specified places as the place of occurrence of the external cause; Y99.8 Other external cause status
CPT/HCPCS: 29515; 36415; 73610; 80048; 85025; 93971; 99285-25

== ENCOUNTER → 2019-12-20 | Outpatient (CLI) | payer MEDICARE ==
[2019-12-20 12:56] LABS: HEMATOCRIT 41.4 % (39.0-53.0); HEMOGLOBIN 13.6 g/dL (13.0-17.5)
[2019-12-20 13:01] LABS: ALBUMIN 3.6 g/dL (3.4-5.0); CREATININE 1.6 mg/dL (0.7-1.3); GFR 42.8; PHOSPHORUS 3.7 mg/dL (2.6-4.7); POTASSIUM 4.6 mmol/L (3.5-5.1)
== END ==
LOC: LAB 11:07
PROVIDERS: ATTEND Internal Medicine Nephrology
DX: I12.9 Hypertensive chronic kidney disease with stage 1 through stage 4 chronic kidney disease, or unspecified chronic kidney disease (principal); N18.30 Chronic kidney disease, stage 3 unspecified; Z90.5 Acquired absence of kidney
CPT/HCPCS: 36415; 80069; 85014; 85018

== ENCOUNTER → 2021-03-11 | Outpatient (CLI) | payer MEDICARE ==
[2021-03-11 17:04] LABS: ALBUMIN 3.9 g/dL (3.4-5.0); CALCIUM 8.9 mg/dL (8.5-10.1); CREATININE 1.6 mg/dL (0.7-1.3); GFR 42.7; PHOSPHORUS 4.1 mg/dL (2.6-4.7)
[2021-03-12 00:25] LABS: MICRO CREAT RATIO <4 mg/g creat (0-29); MICROALB RD UR <3.0 ug/mL (Not Estab.)
== END ==
LOC: LAB 16:03
PROVIDERS: ATTEND Internal Medicine Nephrology
DX: I12.9 Hypertensive chronic kidney disease with stage 1 through stage 4 chronic kidney disease, or unspecified chronic kidney disease (principal); N18.30 Chronic kidney disease, stage 3 unspecified; R00.1 Bradycardia, unspecified; Z90.5 Acquired absence of kidney; Z68.24 Body mass index [BMI] 24.0-24.9, adult
CPT/HCPCS: 80069; 82043; 82570; 84156